=== PATIENT | male | born 1985 | race Caucasian/White ===

== ENCOUNTER 2019-03-26 12:48 | Emergency (ER) | payer SELFPAY ==
[~2019-03-26] VITALS: Ht 165.1 cm; Wt 66.0 kg
[2019-03-26 14:25] LABS: HEMATOCRIT. 33.6 % (42.0-52.0); HEMOGLOBIN. 10.8 g/dL (14.0-18.0); MEAN CORPUSCULAR HEMOGLOBIN 28.2 pg (28.0-32.0); MEAN PLATELET VOLUME 8.4 fl (7.4-10.4); PLATELET 352 x1000/uL (130-400); RED BLOOD CELL COUNT 3.81 mill/uL (4.7-6.1)
[2019-03-26 14:29] LABS: CHLORIDE 111 mEq/L (98-107)
[2019-03-26 14:54] LABS: PLATELET ESTIMATE NORMAL
[2019-03-26 14:55] LABS: ETHANOL BLOOD 496 mg/dL
[2019-03-26] MEDS ORDERED: FOLIC ACID 1 MG, THIAMINE HCL 100 MG, MVI, ADULT NO.1 10 ML in DEXTROSE 5% WATER 1,000 ML IV ONE ×4 (15:30)
[2019-03-26] MEDS ORDERED: KCL 20MEQ/100ML PREMIX 100 ML IV ONE (15:30)
[2019-03-26 18:00] VITALS: BP 114/68
[2019-03-26] MEDS ORDERED: POTASSIUM CHLORIDE 20MEQ/PACKET PO ONE (18:00)
== END 2019-03-26 19:30 | disposition home or self-care (01) ==
LOC: ER 12:48
DX: F10.229 Alcohol dependence with intoxication, unspecified (principal); Y90.8 Blood alcohol level of 240 mg/100 ml or more; Z93.3 Colostomy status
CPT/HCPCS: 36415; 80053; 80320; 85025; 96365; 99283; J3411; J3480; J3490; J7070; G0480